=== PATIENT | female | born 1990 | race Caucasian/White ===

== ENCOUNTER 2020-12-15 03:51 | Emergency (ER) | payer MEDICAID, SELFPAY ==
[~2020-12-15] VITALS: Ht 167.6 cm; Wt 66.7 kg
[~2020-12-15 03:51] MED LIST: FOLI-43 PO; Thiamine Hcl PO
[2020-12-15 04:08] VITALS: BP_SYST 139
[2020-12-15] MEDS ORDERED: LIDOCAINE/EPI 1% 1:100000 20 ML VIAL INJ ONE (04:13)
[2020-12-15] MEDS: LORazepam 2 MG/ML VIAL IM ONE (04:21)
[2020-12-15 04:41] LABS: BASOPHILS # (AUTO) 0.1 K/uL (0.0-0.2); EOSINOPHILS # (AUTO) 0.1 K/uL (0.0-0.4); EOSINOPHILS % (AUTO) 1.6 % (0.0-4.0); HEMATOCRIT 32.7 % (36-48); HEMOGLOBIN 11.2 g/dL (12.0-16.0); LYMPHOCYTES # (AUTO) 2.4 K/uL (1.0-5.5); MEAN CORPUSCULAR HEMOGLOBIN 37 pg (27-31); MEAN CORPUSCULAR HGB CONC 34 % (32-36); MEAN CORPUSCULAR VOLUME 106 fL (79.0-98.0); MONOCYTES # (AUTO) 0.7 K/uL (0.0-1.0); MONOCYTES % (AUTO) 9.3 % (1.7-9.3); NEUTROPHILS # (AUTO) 4.6 K/uL (1.8-7.7); NEUTROPHILS % (AUTO) 58.1 % (40.0-70.0); PLATELET COUNT (AUTO) 78 K/uL (130-430); RED BLOOD CELL COUNT(AUTO) 3.07 MIL/uL (4.2-6.2); RED CELL DISTRIBUTION WIDTH 16.4 % (9.0-15.0); WHITE BLOOD COUNT (AUTO) 7.9 K/uL (4.8-10.8)
[2020-12-15] MEDS: LIDOCAINE/EPI 1% 1:100000 20 ML VIAL INJ ONE (04:43)
[2020-12-15 05:12] VITALS: BP_SYST 139
== END 2020-12-15 05:12 | disposition home or self-care (01) ==
LOC: SED 03:51
DX: S71.101A Unspecified open wound, right thigh, initial encounter (principal); D18.01 Hemangioma of skin and subcutaneous tissue; Z88.8 Allergy status to other drugs, medicaments and biological substances; Z79.899 Other long term (current) drug therapy; X58.XXXA Exposure to other specified factors, initial encounter; Y93.89 Activity, other specified; Y92.89 Other specified places as the place of occurrence of the external cause; Y99.8 Other external cause status
CPT/HCPCS: 36415; 85025; 96372; 99283